=== PATIENT | male | born 1965 | race Caucasian/White ===

== ENCOUNTER → 2019-02-25 | Outpatient (REF) | payer OTHER | LOC: M SFHCLERA 13:42 | PROVIDERS: ATTEND Nurse Practitioner Family | DX: J02.9 Acute pharyngitis, unspecified (principal) ==

== ENCOUNTER → 2020-09-08 | Outpatient (REF) | payer OTHER | LOC: M LAB REF 19:19 | PROVIDERS: ATTEND Podiatrist Foot & Ankle Surgery | DX: B07.9 Viral wart, unspecified (principal) ==

== ENCOUNTER → 2021-04-28 | Outpatient (REF) | payer OTHER | LOC: M SMT PRO 09:16 | PROVIDERS: ATTEND Urology | DX: C61 Malignant neoplasm of prostate (principal); R97.20 Elevated prostate specific antigen [PSA] ==

== ENCOUNTER → 2024-03-05 | Outpatient (CLI) | payer BC ==
[2024-03-05 11:47] LABS: PLATELET COUNT, AUTOMATED 207 10^3/uL (150-450)
[2024-03-05 12:00] LABS: INR 0.97; PARTIAL THROMBOPLASTIN TIME 28.3 SECONDS (24.8-34.2); PROTHROMBIN TIME 13.2 SECONDS (12.5-14.5)
[2024-03-05 12:21] LABS: COLLAGEN EPINEPHRINE 105 SECONDS (74-162)
== END ==
LOC: M LAB 11:06
PROVIDERS: ATTEND Orthopaedic Surgery
DX: Z01.818 Encounter for other preprocedural examination (principal)

== ENCOUNTER → 2024-04-22 | Outpatient (CLI) | payer BC ==
[~2024-04-22] MED LIST: AMIT25TA19 PO; METO1TAB32 PO; SIMV20TA22 PO
[2024-04-22 10:53] LABS: HEMATOCRIT 48.8 % (42.0-52.0); HEMOGLOBIN 16.5 g/dl (13.5-17.5); MEAN CORPUSCULAR HEMOGLOBIN 32.2 pg (27.0-33.0); MEAN CORPUSCULAR HGB CONC 33.8 g/dl (32.0-36.5); MEAN CORPUSCULAR VOLUME 95.1 fl (80.0-96.0); PLATELET COUNT, AUTOMATED 175 10^3/uL (150-450); RED BLOOD COUNT 5.13 10^6/uL (4.30-6.10); WHITE BLOOD COUNT 6.1 10^3/uL (4.0-10.0)
[2024-04-22 10:57] LABS: APPEARANCE, URINE CLEAR (CLEAR); BACTERIA, URINE AUTO NEGATIVE (NEGATIVE); BILIRUBIN, URINE AUTO NEGATIVE (NEGATIVE); BLOOD, URINE BLOOD NEGATIVE (NEGATIVE); COLOR, URINE YELLOW (YELLOW); GLUCOSE, URINE (UA) AUTO NEGATIVE (NEGATIVE); KETONE, URINE AUTO NEGATIVE (NEGATIVE); LEUKOCYTE ESTERASE, URINE AUTO NEGATIVE (NEGATIVE); NITRITE, URINE AUTO NEGATIVE (NEGATIVE); PROTEIN, URINE AUTO NEGATIVE (NEGATIVE); RBC, URINE AUTO 0 /HPF (0-3); SPECIFIC GRAVITY URINE AUTO 1.024 (1.002-1.035); SQUAMOUS EPITHELIAL CELL UR AU 0 /HPF (0-6); UROBILINOGEN, URINE AUTO 0.2 mg/dL (0.0-2.0); WBC, URINE AUTO 0 /HPF (0-3)
[2024-04-22 11:13] LABS: ALBUMIN 4.2 G/DL (3.2-5.2); ALKALINE PHOSPHATASE 79 U/L (40-129); ALT/SGPT 62 U/L (7.0-40); AST/SGOT 32 U/L (<34); BILIRUBIN,TOTAL 0.9 MG/DL (0.3-1.2); BLOOD UREA NITROGEN 20 MG/DL (9-23); CALCIUM LEVEL 9.9 MG/DL (8.5-10.1); CARBON DIOXIDE LEVEL 30 MMOL/L (20-31); CHLORIDE LEVEL 108 MMOL/L (98-107); CREATININE FOR GFR 0.99 MG/DL (0.70-1.30); GLOMERULAR FILTRATION RATE > 60.0 (>56); GLUCOSE, FASTING 105 MG/DL (60-100); SODIUM LEVEL 145 MMOL/L (136-145); TOTAL PROTEIN 7.8 G/DL (5.7-8.2)
== END ==
LOC: M LAB 09:55
PROVIDERS: ATTEND Urology
DX: C61 Malignant neoplasm of prostate (principal)

== ENCOUNTER 2024-04-29 06:15 | Day surgery (SDC) | payer BC ==
[~2024-04-29] VITALS: Ht 167.6 cm; Wt 79.4 kg
[2024-04-29] MEDS ORDERED: propofoL 200 MG/20 ML VIAL As Ordered ONE (06:40)
[2024-04-29] MEDS ORDERED: KETAMINE HCL 200MG/20ML VIAL As Ordered ONE (06:40)
[2024-04-29] MEDS ORDERED: LIDOCAINE 2% 100MG/5ML SDV (FOR ANES.) As Ordered ONE (06:40)
[2024-04-29] MEDS ORDERED: MIDAZOLAM INJ 2MG/2ML VIAL As Ordered ONE (06:40)
[2024-04-29] MEDS ORDERED: NS (Normal Saline) 0.9% 1,000 ML IV SCH (06:40)
[2024-04-29] MEDS ORDERED: ACETAMINOPHEN 1000MG/100ML IV BAG As Ordered ONE (06:41)
[2024-04-29] MEDS ORDERED: ONDANSETRON 4MG 2ML VIAL As Ordered ONE (06:41)
[2024-04-29] MEDS: cefTRIAXone SOD 1 GM in DEXTROSE 5% (D5W) ADV/MINI-BAG 50 ML IV ONE (07:40)
[2024-04-29] MEDS: LIDOCAINE 1% SDV 30ML VIAL As Ordered ONE (07:45)
[2024-04-29 08:03] VITALS: BP 111/70; TEMP 97.8; O2SAT 98
== END 2024-04-29 09:25 | disposition home or self-care (01) ==
LOC: M SDC 06:15
PROVIDERS: ATTEND Urology
DX: C61 Malignant neoplasm of prostate (principal); I10 Essential (primary) hypertension; Z79.899 Other long term (current) drug therapy; E78.00 Pure hypercholesterolemia, unspecified; K21.9 Gastro-esophageal reflux disease without esophagitis
CPT/HCPCS: 55700; 76872; 93005; G0416; J0131; J0665; J0696; J2250; J2405

== ENCOUNTER 2024-12-03 10:12 | Day surgery (SDC) | payer BC ==
[~2024-12-03] VITALS: Ht 167.6 cm; Wt 78.7 kg
[~2024-12-03 10:12] MED LIST changes: +HYDR-3713 PO; +LIDOCAINE 2% 100 MG/5 ML SDV (FOR ANES.) As Ordered ONE; +MIDAZOLAM INJ 2 MG/2 ML VIAL As Ordered ONE; +ROCURONIUM BROMIDE 50MG/5ML VIAL As Ordered ONE; +ceFAZolin SOD 2 GM IV ONCE IV ONE
[2024-12-03] MEDS ORDERED: HOME MED LIST COMPLETE! XX SCH (10:55)
[2024-12-03] MEDS: LR 1,000 ML IV SCH (11:05)
[2024-12-03] MEDS ORDERED: PERCOCET 5MG/325MG TAB PO PRN (11:40)
[2024-12-03] MEDS ORDERED: ACETAMINOPHEN 325 MG TAB PO PRN (11:40)
[2024-12-03] MEDS ORDERED: ONDANSETRON 4MG 2ML VIAL IV PRN ×2 (11:40→16:15)
[2024-12-03] MEDS: ceFAZolin SOD 2 GM IV ONCE IV ONE (11:51)
[2024-12-03] MEDS ORDERED: dexAMETHasone 4 MG/ML 1 ML VIAL As Ordered ONE (11:52)
[2024-12-03] MEDS: HEPARIN SOD 5000 UNITS/ML 1 ML VIAL/SYRINGE SQ ONE (12:00)
[2024-12-03] MEDS ORDERED: LIDOCAINE 1% SDV 30 ML VIAL As Ordered ONE (12:34)
[2024-12-03] MEDS ORDERED: HYDROmorphone HCL 2 MG/ML 1 ML VIAL As Ordered ONE (13:28)
[2024-12-03] MEDS ORDERED: ONDANSETRON 4MG 2ML VIAL As Ordered ONE (13:28)
[2024-12-03] MEDS ORDERED: SUGAMMADEX SODIUM 200 MG/2 ML VIAL As Ordered ONE (13:28)
[2024-12-03] MEDS ORDERED: ACETAMINOPHEN 1000MG/100ML IV BAG As Ordered ONE (13:28)
[2024-12-03 17:23] LABS: PLATELET COUNT, AUTOMATED 203 10^3/uL (150-450)
[2024-12-03 17:40] LABS: CALCIUM LEVEL 8.8 MG/DL (8.5-10.1); CARBON DIOXIDE LEVEL 28.0 MMOL/L (20-31); CHLORIDE LEVEL 108.0 MMOL/L (98-107); CREATININE FOR GFR 1.0 MG/DL (0.70-1.30); GLOMERULAR FILTRATION RATE 86.7 (>56); POTASSIUM SERUM 4.4 MMOL/L (3.5-5.1); SODIUM LEVEL 143.0 MMOL/L (136-145)
[2024-12-03 18:19] VITALS: BP 133/80; TEMP 97.2; O2SAT 92
[2024-12-03 18:50] VITALS: BP 131/81; TEMP 97.2; O2SAT 96
[2024-12-03] MEDS: NS (Normal Saline) 0.9% 1,000 ML IV SCH (19:30)
[2024-12-03 19:54] VITALS: BP 110/71; TEMP 97.2; O2SAT 97
[2024-12-03 21:13] VITALS: BP 114/75; TEMP 97.7; O2SAT 97
[2024-12-03] MEDS: DOCUSATE SODIUM 100 MG CAPSULE PO SCH (21:14)
[2024-12-03] MEDS: SIMVASTATIN 20 MG TAB PO SCH (21:14)
[2024-12-03] MEDS: METOPROLOL SUCC. 25 MG *XL* TAB PO SCH (21:14)
[2024-12-03] MEDS: HEPARIN SOD 5000 UNITS/ML 1 ML VIAL/SYRINGE SC SCH (21:15)
[2024-12-03] MEDS: ceFAZolin SOD 1 GM in DEXTROSE 5% (D5W) ADV/MINI-BAG 50 ML IV SCH (21:22)
[2024-12-03 22:13] VITALS: BP 116/74; TEMP 97.5; O2SAT 96
[2024-12-03 23:10] VITALS: BP 117/68; TEMP 97.7; O2SAT 96
[2024-12-04 03:13] VITALS: O2SAT 92
[2024-12-04 03:21] VITALS: BP 118/69; TEMP 97.9; O2SAT 95
[2024-12-04] MEDS: PERCOCET 5MG/325MG TAB PO PRN (06:11)
[2024-12-04 06:17] LABS: PLATELET COUNT, AUTOMATED 225 10^3/uL (150-450)
[2024-12-04 06:44] LABS: CALCIUM LEVEL 8.4 MG/DL (8.5-10.1); CARBON DIOXIDE LEVEL 28 MMOL/L (20-31); CHLORIDE LEVEL 107 MMOL/L (98-107); CREATININE FOR GFR 0.95 MG/DL (0.70-1.30); GLOMERULAR FILTRATION RATE > 90.0 (>56); POTASSIUM SERUM 4.2 MMOL/L (3.5-5.1); SODIUM LEVEL 141 MMOL/L (136-145)
[2024-12-04] MEDS ORDERED: CIPR-249 PO (07:47)
[2024-12-04] MEDS ORDERED: COLA100C5 PO (07:47)
[2024-12-04] MEDS ORDERED: PERCOCET PO (07:47)
[2024-12-04 08:00] VITALS: BP 109/64; TEMP 98.1; O2SAT 95
[2024-12-04 12:00] VITALS: BP 119/74; TEMP 98.1; O2SAT 92
== END 2024-12-04 15:04 | disposition home or self-care (01) ==
LOC: M SDC 10:12 → M MSPAV 18:07 → M SDC 12-04 15:04
PROVIDERS: ATTEND Urology
DX: C61 Malignant neoplasm of prostate (principal); I10 Essential (primary) hypertension; E78.5 Hyperlipidemia, unspecified; Z79.899 Other long term (current) drug therapy; M54.9 Dorsalgia, unspecified
CPT/HCPCS: 36415; 38571; 55866; 80048; 85027; 86850; 86900; 86901; 88305; 88309; 96361; 96365; 96366; J0131; J0665; J0690; J1100; J1171; J2250; J2405; J3010; S2900

== ENCOUNTER → 2025-02-26 | Outpatient (CLI) | payer BC ==
[~2025-02-26] MED LIST changes: +CIPR-249 PO; +COLA100C5 PO; -LIDOCAINE 2% 100 MG/5 ML SDV (FOR ANES.) As Ordered ONE; -MIDAZOLAM INJ 2 MG/2 ML VIAL As Ordered ONE; +PERCOCET PO; -ROCURONIUM BROMIDE 50MG/5ML VIAL As Ordered ONE; -ceFAZolin SOD 2 GM IV ONCE IV ONE
== END ==
LOC: M PLAIMG 13:47
PROVIDERS: ATTEND Physician Assistant
DX: J98.4 Other disorders of lung (principal); R91.8 Other nonspecific abnormal finding of lung field